=== PATIENT | female | born 1980 | race Caucasian/White ===

== ENCOUNTER 2016-07-18 09:47 | Emergency (ER) | payer OTHER ==
[~2016-07-18] VITALS: Ht 165.1 cm; Wt 72.5 kg
[~2016-07-18 09:47] MED LIST: DENIES
[2016-07-18 09:51] VITALS: Ht 165.1 cm; Wt 72.5 kg
[2016-07-18 11:19] LABS: URINE BLOOD (Dip) POC 2+ (NEGATIVE)
[2016-07-18] MEDS ORDERED: NITR-58 PO (11:40)
[2016-07-18 11:54] VITALS: BP 116/63; PULSE 70; RESP 18; TEMP 98.3
--- NOTE | 2016-07-18 12:29 | ERD ---
ER Documentation Chief Complaint Date/Time DATE: 07/18/16 TIME: 12:26 Chief Complaint PAINFUL URINATION X 1 WEEK HPI Patient is a 35-year-old female who presents to the ED for dysuria, urgency and suprapubic tenderness. She states that she developed the symptoms 2 days ago. She denies fever or chills. She denies flank pain. She denies nausea, vomiting or diarrhea. She denies hematuria. She denies chest pain, cough or shortness of breath. She denies headache or dizziness. She states that she has had UTIs in the past and feels that this is possibly a UTI. She denies kidney stones. She states that she has used hot compresses on her suprapubic area which is helped with her symptoms. Denies abnormal vaginal discharge or vaginal bleeding. ROS All systems reviewed and are negative except as per history of present illness. Medications Home Meds Active Scripts Nitrofurantoin Monohyd Macrocr* (Macrobid*) 100 Mg Capsr, 100 MG PO BID for 7 Days, CAP Prov:RADHA CASE PA-C 07/18/16 Reported Medications [Denies] No Conflict Check 10/13/11 Allergies Allergies: Coded Allergies: No Known Allergies (Verified Allergy, Mild, 07/18/16) PMhx/Soc History of Surgery: Yes (NOSE) Hx Neurological Disorder: No Hx Respiratory Disorders: No Hx Cardiac Disorders: No Hx Miscellaneous Medical Probl: Yes (HYPOTHYROIDISM ) Hx Alcohol Use: No Hx Substance Use: No Hx Tobacco Use: No Smoking Status: Never smoker Physical Exam Vitals Vital Signs Date Time Temp Pulse Resp B/P Pulse Ox O2 Delivery O2 Flow Rate FiO2 07/18/16 11:54 98.3 70 18 116/63 98 07/18/16 09:51 98.3 100 18 116/57 98 Physical Exam GENERAL: Well-developed, well-nourished female. Appears in no acute distress. HEAD: Normocephalic, atraumatic. LUNG: Clear to auscultation bilaterally. No rhonchi, wheezing, rales or coarse breath sounds. HEART: Regular rate and rhythm. No murmurs, rubs or gallops. ABDOMEN: No scars, ecchymosis or rashes noted. Soft, nontender, and nondistended. Positive bowel sounds in all four quadrants. No rebound tenderness , no guarding. (-) McBurneys point tenderness. No CVA tenderness. BACK: No midline tenderness. Extremities: Equal pulses bilaterally. No peripheral clubbing, cyanosis or edema. No unilateral leg swelling. NEUROLOGIC: Alert and oriented. Moving all four extremities. 5/5 strength in all extremities. Normal speech. Steady gait. SKIN: Normal color. Warm and dry. No rashes or lesions. Capillary refill < 2 seconds Results 24 hrs Laboratory Tests Test 07/18/16 11:19 Bedside Urine Blood 2+ Bedside Urine Glucose (UA) Negative Bedside Urine Ketones (LAB) Negative Bedside Urine Leukocyte Esterase (L 3+ Bedside Urine Nitrite (LAB) Negative Bedside Urine Protein (LAB) 1+ Bedside Urine pH (LAB) 7.5 Procedures/MDM ER COURSE: I kept the patient and/or family informed of laboratory and diagnostic imaging results throughout the emergency room course. UA showed evidence of 1+ protein, 2+ blood and 3+ leukocytes. Urine test was negative. MEDICAL DECISION MAKING: This is a 35-year-old female who presents with dysuria and urgency. Vital signs were reviewed. Patient is afebrile. Patient is not hypoxic. Patient has a UTI. Low suspicion for ovarian torsion, PID, tuboovarian abscess, ectopic , bowel obstruction, pyelonephritis, appendicitis. Low suspicion for nephrolithiasis, septic stone or obstructive stone patient is afebrile, denies back pain. I do not think that patient needs to be admitted this time or blood work needs to be done. DISCHARGE: At this time, patient is stable for discharge and outpatient management with no new complaints during the ER course. Patient was sent home with Macrobid. Patient will be discharged home with instructions to recheck for new or worsening symptoms such as fever, nausea, weakness, LOC and to follow up with primary care in the next 1-2 days. Patient was advised to return to the ER for any new or worsening symptoms. Plan was discussed and patient and/or family understands and agrees. Home instructions were given. Departure Diagnosis: Primary Impression: UTI (lower urinary tract infection) Condition: Stable Patient Instructions: Understanding Urinary Tract Infections (UTIs) Additional Instructions: Call your primary care doctor TOMORROW for an appointment during the next 1-2 days.See the doctor sooner or return here if your condition worsens before your appointment time. RADAH CASE PA-C Jul 18, 2016 12:29
== END 2016-07-18 11:56 | disposition home or self-care (01) ==
LOC: FTE 09:47
DX: N39.0 Urinary tract infection, site not specified (principal); E03.9 Hypothyroidism, unspecified
CPT/HCPCS: 81003; 99283

== ENCOUNTER 2016-12-26 10:19 | Emergency (ER) | payer OTHER ==
[~2016-12-26] VITALS: Wt 69.0 kg
[~2016-12-26 10:19] MED LIST changes: +NITR-58 PO
[2016-12-26] MEDS ORDERED: LORA10CA PO (11:11)
--- NOTE | 2016-12-26 11:11 | ERD ---
ER Documentation Chief Complaint Date/Time DATE: 12/26/16 TIME: 11:04 Chief Complaint SORE THROAT X 2 DAYS HPI This pleasant 36-year-old female presents to emergency department today with a 3 day history of sore throat, postnasal drip, intermittent R otalgia. Patient reports she is able to eat and drink without deficit, denies fever, body aches, chills, nausea or vomiting. Patient has tried symptomatic relief with tea and honey, Sudafed, reported intermittent relief of symptoms. Patient states that she is going to [employer] in a few days and is concerned that she has a bacterial infection. Patient denies smoking, asthma, or antibiotic use in the last 3 months. ROS All systems reviewed and are negative except as per history of present illness. Medications Home Meds Active Scripts Nitrofurantoin Monohyd Macrocr* (Macrobid*) 100 Mg Capsr, 100 MG PO BID for 7 Days, CAP Prov:RADHA CASE PA-C 07/18/16 Reported Medications [Denies] No Conflict Check 10/13/11 Allergies Allergies: Coded Allergies: No Known Allergies (Verified Allergy, Mild, 07/18/16) PMhx/Soc History of Surgery: Yes (NOSE) Hx Neurological Disorder: No Hx Respiratory Disorders: No Hx Cardiac Disorders: No Hx Miscellaneous Medical Probl: Yes (HYPOTHYROIDISM ) Hx Alcohol Use: No Hx Substance Use: No Hx Tobacco Use: No Physical Exam Vitals Vital Signs Date Time Temp Pulse Resp B/P Pulse Ox O2 Delivery O2 Flow Rate FiO2 12/26/16 10:25 98.1 71 18 101/71 99 Vitals stable, triage notes reviewed Physical Exam Const: No acute distress Head: Atraumatic Eyes: Normal Conjunctiva PERRLA, EOMI ENT: Tympanic membranes retracted bilaterally, nasal mucosa edematous with white mucus noted on turbinates, pharynx is pale, injected, mucus noted, tongue moist, uvula midline without shift, rises and falls with pronation. Neck: Full range of motion..~ No meningismus. No palpable cervical chain nodes Resp: Clear to auscultation bilaterally no rales wheezes or rhonchi Cardio: Abd: Soft, non tender, non distended. No epigastric tenderness Skin: No petechiae or rashes Back: No midline or flank tenderness Ext: Neur: Awake and alert Psych: Normal Mood and Affect Procedures/MDM This pleasant 36-year-old female presents to emergency department with 3 day history of sore throat, nasal congestion with postnasal drip, bilateral otalgia intermittently. Patient able to eat and drink without deficit, has no nausea vomiting fever chills. Meningitis, pneumonia is not suspected. Strep pharyngitis unlikely with Centor score of 0. Patient symptoms are consistent with a upper respiratory infection or seasonal allergies. Patient instructed to continue Sudafed, I will add Claritin 1 tab p.o. daily for the next 10 days. Flonase nasal spray 1 squirt each nostril once a day 10 days. Increase fluids, increase rest, return to emergency department for sore throat not responding to treatment, fever, chills, nausea or vomiting. I feel the patient is stable for discharge at this time with outpatient management by primary care physician. I have discussed results, examination findings, the treatment plan with the patient and family present prior to discharge. Indications for emergent reevaluation, side effects of medication were also discussed. All questions were answered. Patient verbalizes understanding and agrees with plan of care. Departure Diagnosis: Primary Impression: Upper respiratory infection URI type: unspecified URI Qualified Code: J06.9 - Upper respiratory tract infection, unspecified type Condition: Stable Patient Instructions: Adult Self-Care for Colds Referrals: [facility] Additional Instructions: Thank you for for coming to [facility] for your care today. Please ask your nurse or provider if you have questions about your care today and do not leave until all your questions have been answered. Please use any medications given as directed and follow-up with your doctor (or the doctor you were referred to) in the next 2-3 days. If you do not have a primary care doctor you may follow up at the [facility] (listed below). You may also use motrin and tylenol as needed for fever and/or pain unless instructed otherwise by your provider or nurse. Indications for more urgent follow-up have been discussed, but you may return to the Emergency Department at ANY time for any worrisome or worsening symptoms. If you have abdominal pain, please know that no test or exam you received is perfect and you should follow up within 8 hours for continued pain. If you had any imaging studies today, such as an X-Ray or CT Scan, these studies will be reviewed later by a radiologist. You will be called if there are important findings that were not identified today, so make sure the contact information you provided at registration is correct. If you received any narcotic pain control medicine today, such as Vicodin, Morphine or Dilaudid, your coordination and judgment may be affected for a number of hours. Please do not drive or operate heavy machinery, and you may want someone to assist you at home. If you were given a prescription for narcotic medication, be aware that it is very addictive- use sparingly and only if necessary. STEPHEN DYE Dec 26, 2016 11:11
[2016-12-26] MEDS ORDERED: FLUT9.9S NASAL (11:12)
== END 2016-12-26 11:28 | disposition home or self-care (01) ==
LOC: FTE 10:19
DX: J06.9 Acute upper respiratory infection, unspecified (principal); E03.9 Hypothyroidism, unspecified
CPT/HCPCS: 99283

== ENCOUNTER 2017-09-14 08:13 | Emergency (ER) | END 2017-09-14 09:39 | disposition home or self-care (01) ==

== ENCOUNTER 2017-10-19 08:29 | Emergency (ER) | END 2017-10-19 10:16 | disposition home or self-care (01) ==